=== PATIENT | male | born 1975 | race Caucasian/White ===

== ENCOUNTER 2023-11-10 21:49 | Emergency (ER) | payer OTHER, SELFPAY ==
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
[2023-11-10 21:52] VITALS: BP 182/80; PULSE 108; RESP 18; TEMP 37; O2SAT 97
--- NOTE | 2023-11-10 21:55 | ECG_ITS ---
SEE SCANNED COPY FOR CONFIRMED REPORT MTDD
--- NOTE | 2023-11-10 22:00 | PC.NURSE ---
radiology and cardiopulmonary at the bedside
--- NOTE | 2023-11-10 22:13 | PC.NURSE ---
lab at the bedside. wob non labored. speaks in full sentences.
[2023-11-10 22:27] LABS: Base Excess ABG -0.1 mmol/L (0-2); HCO3 ABG 22.4 mmol/L (23-29); Oxygen Content ABG 26.8 %vol (16.0-22.0); Oxygen Saturation ABG 96.8 % (95-97); Oxyhemoglobin 94.4 % (94-100); PO2 ABG 85.7 mmHg (80-90); Total Hemoglobin 20.2 g/dL (12.0-18.0); pH ABG 7.46 (7.35-7.45)
[2023-11-10 22:28] LABS: Device ROOM AIR; Modified Allen's Test Pass; Site Drawn RIGHT RADIAL
--- NOTE | 2023-11-10 22:41 | PC.NURSE ---
patient ambulated to shower room. personal belongings bag given and paper scrubs to wear home.
--- NOTE | 2023-11-10 22:52 | PC.NURSE ---
patient was taken to ct via wheel chair
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
--- NOTE | 2023-11-10 23:30 | ED.GENADULT ---
HPI - General Adult General Chief complaint: Burn/Smoke Inhalation Stated complaint: Smoke/Chemical Inahalation Time Seen by Provider: 11/10/23 21:54 Source: patient Mode of arrival: ambulatory Limitations: no limitations History of Present Illness HPI narrative: 48-year-old male with exposure currently asymptomatic with some no nausea vomiting abdominal pain no shortness of breath or chest pain no fever chills. 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 Onset (ago): hour(s) Related Data Home Medications Medication Instructions Recorded Confirmed Unable to Obtain Home Medications 11/10/23 11/10/23 Allergies Allergy/AdvReac Type Severity Reaction Status Date / Time No Known Allergies Allergy Verified 11/10/23 22:03 Review of Systems Review of Systems: All systems reviewed & are unremarkable except as noted in HPI and below PMFSH Past Medical History Medical History Patient denies medical problems Exam Const: General: healthy appearing Nutritional Appearance: well nourished Orientation/consciousness: patient oriented x3 Limitations: no limitations HENMT: Head: normal to inspection Eyes: Conjunctivae: conjunctivae normal Pupils: Equal, round and reactive pupils present Neck: Neck: normal visual inspection Chest: Chest palpation & inspection: normal inspection of the chest Resp: Effort & Inspection: normal respiratory effort Auscultation: clear to auscultation bilaterally Cardio: Rate: regular rate Rhythm: regular rhythm GI: GI Palp: Yes Soft to palpation Auscultation: normal bowel sounds Urinary Catheter: Urinary Catheter: patent and draining Skin: General skin exam: normal color Rashes: no rashes Wounds: no wounds Neuro: General: patient oriented x3 and moves all extremities Psych: Mental Status: mental status grossly normal Course Course Emergency Course: patient had chest x-ray which showed a possibility of inhalation pneumonitis high-resolution CT scan performed is without any acute findings. ABGs evaluated reviewed with patient EKG evaluated reviewed with patient patient was advised to shower and rinse any chemical exposure his skin. Vital Signs Vital signs: Vital Signs Temperature 37.0 C 11/10/23 21:52 Pulse Rate 108 H 11/10/23 21:52 Respiratory Rate 18 11/10/23 21:52 Blood Pressure 182/80 H 11/10/23 21:52 Pulse Oximetry 97 11/10/23 21:52 Oxygen Delivery Room Air 11/10/23 21:52 Temperature 37.0 C 11/10/23 21:52 Pulse Rate 108 H 11/10/23 21:52 Respiratory Rate 18 11/10/23 21:52 Blood Pressure 182/80 H 11/10/23 21:52 Pulse Oximetry 97 11/10/23 21:52 Oxygen Delivery Room Air 11/10/23 21:52 Medical Decision Making Vital Signs Vital Signs: Vital Signs Temperature 37.0 C 11/10/23 21:52 Pulse Rate 108 H 11/10/23 21:52 Respiratory Rate 18 11/10/23 21:52 Blood Pressure 182/80 H 11/10/23 21:52 Pulse Oximetry 97 11/10/23 21:52 Oxygen Delivery Room Air 11/10/23 21:52 Temperature 37.0 C 11/10/23 21:52 Pulse Rate 108 H 11/10/23 21:52 Respiratory Rate 18 11/10/23 21:52 Blood Pressure 182/80 H 11/10/23 21:52 Pulse Oximetry 97 11/10/23 21:52 Oxygen Delivery Room Air 11/10/23 21:52 ABG Data ABG results: 11/10/23 22:14 Puncture Site Right radial ABG pH 7.46 H ABG pCO2 32.0 L ABG pO2 85.7 ABG PO2/FiO2 Ratio Not Reportable ABG HCO3 22.4 L ABG O2 Saturation 96.8 ABG O2 Content 26.8 H ABG Base Excess -0.1 L A-a Gradient Not Reportable Oxyhemoglobin 94.4 Total Hemoglobin 20.2 H O2 Delivery Device Room air O2 Liters/Min 0.0 Critical Care Time Critical Care Time Critical Care Time: No Discharge Plan Discharge Clinical Impression: Chemical exposure Patient Disposition: Home, Self-Care Condition: Stable Instructions: Antibiotic Form, Chemical Eye [facility]son (ED)
[2023-11-10 23:38] VITALS: BP 120/85; PULSE 88; RESP 18; O2SAT 98
== END 2023-11-10 23:38 | disposition home or self-care (01) ==
PROVIDERS: Emergency Provider Emergency Medicine
DX: T59.91XA Toxic effect of unspecified gases, fumes and vapors, accidental (unintentional), initial encounter (principal); R11.0 Nausea
CPT/HCPCS: 36600; 71045; 71250; 82805; 93005; 99284